=== PATIENT | female | born 1950 | race Caucasian/White ===

== ENCOUNTER 2017-09-27 09:49 | Day surgery (SDC) | payer MEDICARE ==
[~2017-09-27 09:49] MED LIST: PHENYLEPHRINE HCL 10 % OPHTH. SOL 5ML OS
[2017-09-27] MEDS: CYCLOPENTOLATE 2% OPHTH SOLN 2ML BTL OS (12:22)
[2017-09-27] MEDS: TROPICAMIDE 1% OPHTH SOLN 2ML OS (12:23)
[2017-09-27] MEDS: LIDOCAINE 3.5 % 1ML OPHTH TOPICAL GEL OU (12:23)
[2017-09-27] MEDS: OFLOXACIN 0.3 % (OCUFLOX) OPTH SOL 5ML OS (12:23)
[2017-09-27] MEDS: PHENYLEPHRINE 2.5% OPHTH SOL 2ML OS (12:23)
[2017-09-27 12:36] LABS: BEDSIDE GLUCOSE 169 MG/DL (80-115)
[2017-09-27] MEDS ORDERED: MIDAZOLAM INJ 2 MG/2 ML VIAL (J2250) As Ordered (12:58)
[2017-09-27] MEDS ORDERED: fentaNYL 100 MCG/2 ML INJECTION (J3010) As Ordered (12:58)
[2017-09-27] MEDS ORDERED: CARVedilol 6.25 MG TAB As Ordered (13:06)
[2017-09-27] MEDS: CARVedilol 6.25 MG TAB PO (13:15)
[2017-09-27] MEDS: POVIDONE-IODINE 5% OPHTH PREP SOL 30ML As Ordered (13:26)
[2017-09-27] MEDS: HEALON DUET (HEALON 10MG/ML 0.55ML & HEALON ENDOCOAT 30MG/ML 0.85ML) As Ordered (13:29)
[2017-09-27] MEDS: MOXIFLOXACIN IN BSS 0.25MG/0.25ML INTRACAMERAL INJ (OR EYE ONLY)(J2280) As Ordered (13:29)
[2017-09-27] MEDS: BSS with VANC/TOB/EPI for EYE CASES IR (13:29)
[2017-09-27] MEDS: TRIAMCINOLONE PRES FR 40 MG/ML 1ML(TRIESENCE)(OR EYE ONLY)(J3300 PER 1MG) As Ordered (13:29)
[2017-09-27] MEDS: LIDOCAINE 1% SDV 5 ML VIAL As Ordered (13:29)
[2017-09-27] MEDS: LIDOCAINE 2% W/EPIN INJ 20ML **PRES FREE XX (13:31)
== END 2017-09-27 14:10 | disposition home or self-care (01) ==
LOC: M SDC 09:49
DX: H26.9 Unspecified cataract (principal); E11.9 Type 2 diabetes mellitus without complications; G47.30 Sleep apnea, unspecified; I10 Essential (primary) hypertension; E78.5 Hyperlipidemia, unspecified; F32.9 Major depressive disorder, single episode, unspecified; D64.9 Anemia, unspecified; E55.9 Vitamin D deficiency, unspecified; Z88.2 Allergy status to sulfonamides; Z79.899 Other long term (current) drug therapy; Z79.84 Long term (current) use of oral hypoglycemic drugs
CPT/HCPCS: 66984

== ENCOUNTER 2017-12-05 07:24 | Day surgery (SDC) | payer MEDICARE ==
[~2017-12-05 07:24] MED LIST changes: +PHENYLEPHRINE HCL 10 % OPHTH. SOL 5ML OD; -PHENYLEPHRINE HCL 10 % OPHTH. SOL 5ML OS
[2017-12-05 08:15] LABS: BEDSIDE GLUCOSE 232 MG/DL (80-115)
[2017-12-05] MEDS: OFLOXACIN 0.3 % (OCUFLOX) OPTH SOL 5ML OD (08:29)
[2017-12-05] MEDS: PHENYLEPHRINE 2.5% OPHTH SOL 2ML OD (08:29)
[2017-12-05] MEDS: TROPICAMIDE 1% OPHTH SOLN 2ML OD (08:29)
[2017-12-05] MEDS: CYCLOPENTOLATE 2% OPHTH SOLN 2ML BTL OD (08:29)
[2017-12-05] MEDS: LIDOCAINE 3.5 % 1ML OPHTH TOPICAL GEL OU (08:29)
[2017-12-05] MEDS: POVIDONE-IODINE 5% OPHTH PREP SOL 30ML As Ordered (09:22)
[2017-12-05] MEDS ORDERED: fentaNYL 100 MCG/2 ML INJECTION (J3010) As Ordered (09:26)
[2017-12-05] MEDS ORDERED: MIDAZOLAM INJ 2 MG/2 ML VIAL (J2250) As Ordered (09:26)
[2017-12-05] MEDS: MOXIFLOXACIN IN BSS 0.25MG/0.25ML INTRACAMERAL INJ (OR EYE ONLY)(J2280) As Ordered (09:28)
[2017-12-05] MEDS: TRIAMCINOLONE PRES FR 40 MG/ML 1ML(TRIESENCE)(OR EYE ONLY)(J3300 PER 1MG) As Ordered (09:28)
[2017-12-05] MEDS: LIDOCAINE 1% SDV 5 ML VIAL As Ordered (09:28)
[2017-12-05] MEDS: HEALON DUET (HEALON 10MG/ML 0.55ML & HEALON ENDOCOAT 30MG/ML 0.85ML) As Ordered (09:28)
[2017-12-05] MEDS: BSS with VANC/TOB/EPI for EYE CASES IR (09:29)
== END 2017-12-05 10:17 | disposition home or self-care (01) ==
LOC: M SDC 07:24
DX: H25.9 Unspecified age-related cataract (principal); E11.9 Type 2 diabetes mellitus without complications; I10 Essential (primary) hypertension; E78.5 Hyperlipidemia, unspecified; G47.30 Sleep apnea, unspecified; Z88.2 Allergy status to sulfonamides; Z79.899 Other long term (current) drug therapy
CPT/HCPCS: 66984

== ENCOUNTER 2018-08-09 14:47 | Day surgery (SDC) | payer MEDICARE ==
[~2018-08-09] VITALS: Ht 154.9 cm; Wt 82.0 kg
[~2018-08-09 14:47] MED LIST changes: +ACETAMINOPHEN 325 MG TAB PO PRN; +AMLO5TAB6 PO; +ATOR1TAB21 PO; +CARV6.25 PO; +CHLO125TA PO; +CITA20TA4 PO; +GLIM4TAB PO; +IRBE300T10 PO; +LIDOCAINE 3.5 % 1ML OPHTH TOPICAL GEL OU ONE; +LOVA20TA2 PO; +METF500T13 PO; +MULT1TAB10 PO; -PHENYLEPHRINE HCL 10 % OPHTH. SOL 5ML OD; +PROPARACAINE 0.5% OPHTH SOL 15ML OD PRN
[2018-08-09] MEDS ORDERED: TRIMETHOBENZAMIDE 300 MG CAP PO PRN (15:00)
[2018-08-09] MEDS ORDERED: KETOROLAC 0.5% OPHTH SOLN OD ONE (15:00)
[2018-08-09] MEDS ORDERED: fentaNYL 100 MCG/2 ML INJECTION (J3010) As Ordered ONE (16:12)
[2018-08-09] MEDS ORDERED: MIDAZOLAM INJ 2 MG/2 ML VIAL (J2250) As Ordered ONE ×2 (16:12→17:32)
[2018-08-09] MEDS ORDERED: ONDANSETRON 4MG/2ML VIAL (J2405) As Ordered ONE (16:13)
[2018-08-09] MEDS ORDERED: mitoMYcin 0.2 MG/VIAL KIT FOR OPHTHALMIC USE (J7315 PER 0.2MG) As Ordered ONE (16:26)
[2018-08-09] MEDS ORDERED: TOBRAMYCIN INJ 80 MG/2 ML VIAL (J3260) As Ordered ONE (16:26)
[2018-08-09] MEDS ORDERED: BETAMETHASONE SOLUSPAN 6MG/ML INJ 5ML (J0702) As Ordered ONE (16:26)
[2018-08-09] MEDS ORDERED: POVIDONE-IODINE 5% OPHTH PREP SOL 30ML As Ordered ONE (16:27)
[2018-08-09] MEDS ORDERED: LIDOCAINE 2% W/EPIN INJ 20ML **PRES FREE As Ordered ONE (16:27)
[2018-08-09] MEDS ORDERED: TOBRADEX OPHTH OINT 3.5 GM As Ordered ONE (16:27)
[2018-08-09] MEDS ORDERED: HEALON DUET PRO(HEALON 10MG/ML 0.55ML & HEALON ENDOCOAT 30MG/ML 0.85ML) As Ordered ONE (16:27)
[2018-08-09] MEDS ORDERED: BALANCED SALT IRRIGATION SOL 500ML GLASS BOTTLE (FOR OR EYE COMPOUND) As Ordered ONE (17:06)
[2018-08-09] MEDS ORDERED: CEFUROXIME 1MG/0.1ML INTRACAMERAL INJ As Ordered ONE (17:45)
[2018-08-09 18:25] VITALS: BP 163/75
--- NOTE | 2018-08-14 18:59 | RO ---
DATE OF PROCEDURE: 08/09/2018 PREPROCEDURE DIAGNOSIS: Glaucoma right eye. POSTPROCEDURE DIAGNOSIS: Glaucoma right eye. PROCEDURE: Placement of the EX-PRESS shunt right eye and endocyclophotocoagulation right eye. SURGEON: Dr. Daija Burrell PHARMACY HELPER: None. ANESTHESIA: COMPLICATIONS: None. PROCEDURE IN DETAIL: The patient was brought to the operating room and laid in supine position. The eye was prepped and draped in a sterile fashion for ophthalmic surgery and a lid speculum was placed. 2% lidocaine with 1:100 epinephrine was then injected into the subconjunctival space superiorly. 7-0 Vicryl suture was then used in the superior limbal area to rotate the eye inferiorly. Subconjunctival dissection was then carried out and conjunctival peritomy was done between 10-o'clock and 2-o'clock hours. Hemostasis was obtained as necessary. Mitomycin 0.3 mg/mL was then placed under the scleral bed for 2 minutes followed by copious irrigation with balanced salt solution. A limbal based rectangular scleral flap measuring 3 mm x 4 mm was then created with the help of the straight and curved blades, a [place] blade. Dissection was carried out almost to the blue line. Anterior chamber was then entered with the help of a 27-gauge needle which was subsequently retracted and the EX-PRESS shunt was placed through the same tract. This was draped over by the scleral flap. Conjunctiva was then closed over it with the help of #8-0 Vicryl sutures and 10-0 nylon sutures. No leaks were noted and a good bleb was noted. After this, a temporal clear corneal incision was made with a 2.5 mm keratome. Healon was placed below the iris to visualize the ciliary processes which were visualized with the help of the EndoProbe on the video screen. Endocyclophotocoagulation was done 280 degrees at 0.25 mV with good results noted by the shrinking of the ciliary processes. EndoProbe was then removed. Viscoelastic was aspirated. Wound was hydrated. Intracameral moxifloxacin was given and patient was returned to the recovery room in stable condition.
== END 2018-08-09 18:41 | disposition home or self-care (01) ==
LOC: M SDC 14:47
PROVIDERS: ATTEND Ophthalmology
DX: H40.1131 Primary open-angle glaucoma, bilateral, mild stage (principal); I10 Essential (primary) hypertension; E78.5 Hyperlipidemia, unspecified; E66.9 Obesity, unspecified; G47.30 Sleep apnea, unspecified; Z79.84 Long term (current) use of oral hypoglycemic drugs; Z79.899 Other long term (current) drug therapy
CPT/HCPCS: 66183; 66711; C1783; J2250; J2405; J3010; J7315

== ENCOUNTER → 2019-08-06 | Outpatient (CLI) | payer MEDICARE ==
[~2019-08-06] MED LIST changes: -ACETAMINOPHEN 325 MG TAB PO PRN; -CITA20TA4 PO; +CITA20TA6 PO; -GLIM4TAB PO; +GLIM4TAB5 PO; -IRBE300T10 PO; +IRBE300T7 PO; -LIDOCAINE 3.5 % 1ML OPHTH TOPICAL GEL OU ONE; -PROPARACAINE 0.5% OPHTH SOL 15ML OD PRN
--- NOTE | 2019-08-06 13:51 | REPMRS ---
Patient History The patient states she had a clinical breast exam in 07/2019. Patient is postmenopausal. Family history of colorectal cancer in maternal uncle, endometrial cancer under age 50 and ovarian cancer under age 50 in mother. No Hormone Replacement Therapy Digital Woman Screen Mammo: August 06, 2019 - Exam #: [id number] Bilateral CC and MLO view(s) were taken. Technologist: Rere Chambers, Technologist Prior study comparison: March 21, 2014, bilateral digital mammo screening bilat, performed at [facility]. March 18, 2013, right breast digital mammo diagnostic unilateral, performed at [facility]. FINDINGS: There are scattered fibroglandular densities. There is a grouping of microcalcifications projecting in the upper outer quadrant of the right breast which merits further evaluation. There has been no other change in the appearance of the mammogram from the prior studies. There is a mild amount of scattered fibroglandular density which is fairly symmetric. There is no other interval development of dominant mass, architectural distortion, or grouped microcalcification suggestive of malignancy. 3-D tomosynthesis shows no additional findings. Assessment: BI-RADS/ACR category 0 mammogram, Incomplete: Need additional imaging evaluation and/or prior mammograms for comparison. Recommendation Special view mammogram of the right breast. This patient's Lifetime Breast Cancer Risk is estimated at 4.3 %. This mammogram was interpreted with the aid of an FDA-approved computer-aided dectection system. Electronically Signed By: Paulo Ruelas MD 08/06/19 6093
== END ==
LOC: M WHC 10:59
PROVIDERS: ATTEND Nurse Practitioner Family
DX: Z12.31 Encounter for screening mammogram for malignant neoplasm of breast (principal); Z78.0 Asymptomatic menopausal state; Z80.49 Family history of malignant neoplasm of other genital organs; Z80.41 Family history of malignant neoplasm of ovary; R92.0 Mammographic microcalcification found on diagnostic imaging of breast

== ENCOUNTER → 2019-08-13 | Outpatient (CLI) | payer MEDICARE ==
--- NOTE | 2019-08-13 11:19 | REP ---
Digital diagnostic unilateral right breast mammography with CAD: Three views. History: The patient was recalled from screening mammography August 06, 2019 BIRADS category 0 because of some microcalcifications in the upper outer quadrant. Diagnostic imaging was recommended. Comparison is also made with prior mammography March 21, 2014 and March 18, 2013. Mammographic findings: Magnified focal spot compression CC, true mediolateral, and MLO views are obtained. These confirm the presence of two adjacent groupings of polymorphic microcalcifications in the upper outer quadrant of the right breast. These are more numerous than on prior mammography and merit some degree of suspicion. There is also vascular calcification in the upper outer quadrant. A stable upper outer quadrant lymph node is seen. No other significant finding. Impression: Microcalcific grouping confirmed in the upper outer quadrant of the right breast for which stereotactic needle biopsy is recommended. This mammogram was interpreted with the aid of an FDA-approved computer-aided detection system. The patient states he/she had a clinical breast exam in July 2019. The patient letter being requested is m4. This patient's estimated Tyrer-Cuzick lifetime risk assessment for the breast cancer is 4.3 %.
== END ==
LOC: M WHC 10:09
PROVIDERS: ATTEND Nurse Practitioner Family
DX: Z12.31 Encounter for screening mammogram for malignant neoplasm of breast (principal); R92.1 Mammographic calcification found on diagnostic imaging of breast
CPT/HCPCS: 77065; G0279

== ENCOUNTER → 2019-09-05 | Outpatient (CLI) | payer MEDICARE ==
--- NOTE | 2019-09-05 12:05 | REP ---
ULTRASOUND RIGHT BREAST: HISTORY: Palpable lump at 10 o'clock 8 cm from the nipple. Real-time sonographic evaluation of the right breast performed in the region of 10 o'clock at the site of a reported palpable abnormality. At that location a nodule is seen demonstrating a reniform shape with an echogenic hilum, measuring 6 x 6 x 4 mm. There is internal blood flow with Doppler evaluation. This is consistent with an intramammary lymph node. This is seen on several prior mammograms. The finding is benign. IMPRESSION: At the site of the reported palpable abnormality at 10 o'clock right breast 8 cm from the nipple there is an intramammary lymph node which has a benign appearance as discussed in detail above. It is seen on prior mammograms and has remained stable. ACR 2 benign.
== END ==
LOC: M WHC 10:34
PROVIDERS: ATTEND Surgery
DX: R59.0 Localized enlarged lymph nodes (principal); N63.10 Unspecified lump in the right breast, unspecified quadrant

== ENCOUNTER → 2019-09-18 | Outpatient (CLI) | payer MEDICARE ==
[~2019-09-18] MED LIST changes: +FISH1000 PO; +JARD1TAB PO; +REFR1DRO8 OP; +XALA0.007 OP
[2019-09-18 14:20] VITALS: BP 140/72
--- NOTE | 2019-09-18 14:49 | REP ---
SPECIMEN RADIOGRAPHY RIGHT BREAST: Four views. HISTORY: Microcalcifications right breast. The patient status post stereotactic needle biopsy. Comparison mammography August 14, 2019. Two microcalcification targets for biopsy. FINDINGS: There are microcalcifications visible on multiple removed specimens from both targets. IMPRESSION: Specimen radiography demonstrates microcalcifications from each of the two targeted groupings of microcalcification.
--- NOTE | 2019-09-18 14:57 | REP ---
DIGITAL DIAGNOSTIC UNILATERAL RIGHT BREAST MAMMOGRAPHY WITH CAD: TWO VIEWS. HISTORY: The patient is status post stereotactic needle biopsy for two groupings of microcalcifications in the upper outer quadrant of the right breast. Comparison mammography August 13, 2019. FINDINGS: Craniocaudal and mediolateral views demonstrate two needle biopsy marker clips in good position relative to the microcalcific groupings which were targeted. These have been removed and are no longer visible. IMPRESSION: Marker clips in good position.
--- NOTE | 2019-09-18 17:18 | ROOPDOC ---
[facility] Report Of Operation Report of Operation DATE OF PROCEDURE: 09/18/19 PREPROCEDURE DIAGNOSES: 2 clusters of suspicious calcifications in the right breast POSTPROCEDURE DIAGNOSES: 2 clusters of suspicious calcifications in the right breast PROCEDURE: Right breast stereotactic biopsy of 2 separate clusters of calcifications with 2 clip placements. SURGEON: Susan Hewitt MUSIC COORDINATOR: ANESTHESIA: Local anesthetic ESTIMATED BLOOD LOSS: Approximately 5 mL. COMPLICATIONS: None REMARKS: Postbiopsy clips are seen on mammogram in in good position. 2 clusters of suspicious calcifications were removed during the biopsy. DESCRIPTION OF PROCEDURE: Lidocaine 1% LOT [id number] Expiration 10/2022 Sodium Bicarbonate 8.4% LOT [id number] Expiration 08/2020 ANTERIOR BIOPSY: Hydromark clip LOT [id number] Expiration 03/2021 T1 titanium shaped 1 (closed Spring) Bx device: Stereotactic Mammotome Revolve Dual Vacuum- assisted Biopsy System 10 G LOT [id number] Expiration 06/2022 REF [id number] POSTERIOR BIOPSY: Hydromark clip LOT [id number] Expiration 08/2021 T3 titanium shaped 3 Bx device: Stereotactic Mammotome Revolve Dual Vacuum- assisted Biopsy System 10 G LOT [id number] Expiration 08/2021 REF [id number] Informed consent was obtained in the preop area. The most common risk and possible complications including bleeding, hematoma, bruising, infection, injury to surrounding structures were explained to the patient and she expressed understanding. Patient was taken to the procedure room and placed prone on the [facility] Breast Biopsy table with the right breast hanging through the table aperture. Right breast was placed into Cranio-Caudal compression and Dental Associate ashley images were taken. Two Suspicious clusters of calcifications were identified on the ashley images and targets for anterior cluster and posterior cluster were set. At this time, since we were able to confirm visibility of the suspicious clusters of calcifications and patient tolerated prone positioning allowing to proceed with the biopsy, appropriate time out was done stating patients name, date of , and the procedure to be performed. Procedure was started with targeting the anterior cluster of calcifications first. The right breast in CC compression was prepped in the usual fashion. Plain Lidocaine 1% and 8.4% sodium bicarbonate 10:1 mix was used to numb the skin, the biopsy site and tissues along the anticipated biopsy tract. Small skin incision was made with blade number 11. Mammotome 10 G stereotactic breast biopsy device was inserted through the incision and advanced to the previously set coordinates marking the target lesion. Pre-fire imaging was taken to assure appropriate positioning. At this time, Mammotome 10 G breast biopsy device was fired and vacuum assisted biopsies were collected. The biopsy samples were investigated with F[employer] Imaging system and calcifications were observed. Biopsy samples were then placed in the formaldehyde, marked with patients name and right breast biopsy site, and sent to pathology for evaluation. Hydromark clip was placed into the Mammotome biopsy device channel and deployed. Post-deployment imaging was done to assure appropriate clip deployment. Clip was noted in the right breast. Next, our attention was turned toward the posterior cluster of calcifications. New target was set on ashley director of scout work views. Plain Lidocaine 1% and 8.4% sodium bicarbonate 10:1 mix was used to numb the skin, the biopsy site and tissues along the anticipated biopsy tract. A second small skin incision was made with blade number 11. Mammotome 10 G stereotactic breast biopsy device was inserted through the incision and advanced to the previously set coordinates marking the target lesion. Pre-fire imaging was taken to assure appropriate positioning. At this time, Mammotome 10 G breast biopsy device was fired and vacuum assisted biopsies were collected. The biopsy samples were investigated with Faxitron Imaging system and calcifications were observed. Biopsy samples were then placed in the formaldehyde, marked with patients name and right breast biopsy site, and sent to pathology for evaluation. Hydromark clip was placed into the Mammotome biopsy device channel and deployed. Post-deployment imaging was done to assure appropriate clip deployment. Clip was noted in the right breast. At this point, paddle CC compression of the right breast was released and manual pressure was held to decrease harmonic effect and to assure hemostasis. No bleeding was noted upon removal of the pressure. Patient was slowly repositioned and placed into sitting position, and then assisted off the table. Post-biopsy mammogram of the right breast was obtained and showed both clips in expected position and previous cluster of calcifications were no monger visible at the mammogram. Postprocedural dressing was placed. Patient tolerated procedure well and was taken to the recovery unit in stable condition. Discharge instructions were discussed with the patient and she expressed understanding. SUSAN HEWITT DO Sep 18, 2019 17:18
== END ==
LOC: M WHCPRO 12:47
PROVIDERS: ATTEND Surgery
DX: N60.11 Diffuse cystic mastopathy of right breast (principal); Z88.2 Allergy status to sulfonamides; Z88.8 Allergy status to other drugs, medicaments and biological substances

== ENCOUNTER → 2020-10-06 | Outpatient (CLI) | payer MEDICARE ==
[~2020-10-06] MED LIST changes: +AMLO1TAB24 PO; -AMLO5TAB6 PO
--- NOTE | 2020-10-06 15:29 | REPMRS ---
Patient History The patient states she had a clinical breast exam in September 2020. Family history of colorectal cancer in maternal uncle, endometrial cancer under age 50 and ovarian cancer under age 50 in mother. Benign stereotatic loc for ea lesion. of the right breast, September 18, 2019. Benign radio exam breast specimen. of the right breast, September 18, 2019. No Hormone Replacement Therapy Patient states no breast complaints today. Patient has signed MRS History Sheet. Digital Woman Screen Mammo: October 06, 2020 - Exam #: [id number] Bilateral CC and MLO view(s) were taken. Technologist: RT Joyce Prior study comparison: August 13, 2019, right breast diagnostic unilateral mammo performed at [facility]. August 06, 2019, bilateral digital woman screen mammo performed at [facility]. Screening. Digital screening (2D) mammography was performed bilaterally in the CC and MLO projections. Additionally, breast tomosynthesis (3D mammography) was performed bilaterally in the CC and MLO projections. Todays exam was compared to the prior exams(s). By history, the patient has no complaints of a palpable breast abnormality or other significant breast complaints. The breasts are unchanged in size and shape. There are no sho-soft tissue densities or spiculated masses. There is no internal architectural distortion. Once again, stable benign appearing calcifications are seen.There are no suspicious sho-calcific clusters. Skin thickening or nipple retraction is not present. IMPRESSION: The [place] volumetric breast density category is B, there are scattered areas of fibroglandular density. BI-RADS Category 2- Benign Findings(s). There is no evidence of malignant alteration of the breasts. Followup examination recommended in one year. The lifetime Tyrer-Cuzick score is 4.0 % This mammogram was read with the assistance of [employer],an FDA approved computer aided detection system for mammography. Negative x-ray reports should not delay surgical consultation if a dominant or clinically suspicious mass is present. Not all breast cancers can be identified by mammography. Therefore, we recommend that you continue to perform regular breast self-examination and physical examination and then promptly contact your physician of any concerns or changes. Adenosis and dense breasts may obscure an underlying neoplasm. Assessment: BI-RADS/ACR category 2 mammogram. Benign Findings. Recommendation Routine screening mammogram of both breasts in 1 year. Electronically Signed By: Bo Morales DO 10/06/20 0555
== END ==
LOC: M WHC 10:44
PROVIDERS: ATTEND Nurse Practitioner Women's Health
DX: Z12.31 Encounter for screening mammogram for malignant neoplasm of breast (principal); Z80.49 Family history of malignant neoplasm of other genital organs; Z80.41 Family history of malignant neoplasm of ovary; Z86.018 Personal history of other benign neoplasm; R92.1 Mammographic calcification found on diagnostic imaging of breast

== ENCOUNTER → 2021-09-23 | Outpatient (CLI) | payer MEDICARE ==
[~2021-09-23] MED LIST changes: +PIOG1TAB36 PO; +TRUL10IN SQ
== END ==
LOC: M LABSMTC 09:47
PROVIDERS: ATTEND Anesthesiology
DX: Z01.812 Encounter for preprocedural laboratory examination (principal); Z20.822 Contact with and (suspected) exposure to COVID-19

== ENCOUNTER 2021-09-28 06:44 | Day surgery (SDC) | payer MEDICARE ==
[~2021-09-28] VITALS: Ht 154.9 cm; Wt 85.3 kg
[~2021-09-28 06:44] MED LIST changes: +NS 1,000 ML IV ONE
[2021-09-28] MEDS ORDERED: LIDOCAINE 2% 100MG/5ML SDV (FOR ANES.) As Ordered ONE (08:23)
[2021-09-28] MEDS ORDERED: propofoL 200 MG/20 ML VIAL As Ordered ONE (08:23)
[2021-09-28 09:00] VITALS: BP 179/95
== END 2021-09-28 09:05 | disposition home or self-care (01) ==
LOC: M OPP 06:44
PROVIDERS: ATTEND Internal Medicine Gastroenterology
DX: Z86.010 Personal history of colon polyps (principal); Z80.0 Family history of malignant neoplasm of digestive organs; D12.6 Benign neoplasm of colon, unspecified; K64.8 Other hemorrhoids; I10 Essential (primary) hypertension; Z79.01 Long term (current) use of anticoagulants; Z79.02 Long term (current) use of antithrombotics/antiplatelets; Z79.84 Long term (current) use of oral hypoglycemic drugs; Z79.899 Other long term (current) drug therapy; Z88.2 Allergy status to sulfonamides; Z88.8 Allergy status to other drugs, medicaments and biological substances; Z53.8 Procedure and treatment not carried out for other reasons

== ENCOUNTER → 2021-10-27 | Outpatient (CLI) | payer MEDICARE ==
[~2021-10-27] MED LIST changes: -NS 1,000 ML IV ONE
== END ==
LOC: M WHC 14:04
PROVIDERS: ATTEND Advanced Practice Midwife
DX: Z12.31 Encounter for screening mammogram for malignant neoplasm of breast (principal); Z80.0 Family history of malignant neoplasm of digestive organs; Z80.41 Family history of malignant neoplasm of ovary; Z80.49 Family history of malignant neoplasm of other genital organs; Z86.018 Personal history of other benign neoplasm

== ENCOUNTER → 2022-01-09 | Outpatient (CLI) | payer MEDICARE ==
[~2022-01-09] MED LIST changes: +CHLO25TA PO; +MIRA3350 PO; +TRUL10IN PO; -TRUL10IN SQ; +VITA200016 PO
== END ==
LOC: M LABSMTC 10:53
PROVIDERS: ATTEND Anesthesiology
DX: Z01.812 Encounter for preprocedural laboratory examination (principal); Z20.822 Contact with and (suspected) exposure to COVID-19

== ENCOUNTER 2022-01-14 08:37 | Day surgery (SDC) | payer MEDICARE ==
[~2022-01-14] VITALS: Ht 157.5 cm; Wt 83.9 kg
[~2022-01-14 08:37] MED LIST changes: +LIDOCAINE 2% 100MG/5ML SDV (FOR ANES.) As Ordered ONE; +NS 1,000 ML IV ONE; +propofoL 200 MG/20 ML VIAL As Ordered ONE
[2022-01-14] MEDS ORDERED: D5W/0.9% SODIUM CHLORIDE 1,000 ML IV SCH (09:50)
[2022-01-14] MEDS ORDERED: propofoL 200 MG/20 ML VIAL As Ordered ONE (10:21)
[2022-01-14] MEDS ORDERED: LIDOCAINE 2% 100MG/5ML SDV (FOR ANES.) As Ordered ONE (10:21)
[2022-01-14] MEDS ORDERED: METOPROLOL 5 MG/5 ML VIAL As Ordered ONE (10:32)
[2022-01-14 11:40] VITALS: BP 127/62
== END 2022-01-14 11:59 | disposition home or self-care (01) ==
LOC: M OPP 08:37
PROVIDERS: ATTEND Internal Medicine Gastroenterology
DX: Z86.010 Personal history of colon polyps (principal); Z80.0 Family history of malignant neoplasm of digestive organs; K63.5 Polyp of colon; K57.30 Diverticulosis of large intestine without perforation or abscess without bleeding; K64.8 Other hemorrhoids; I10 Essential (primary) hypertension; E78.5 Hyperlipidemia, unspecified; E11.9 Type 2 diabetes mellitus without complications; F41.9 Anxiety disorder, unspecified; G47.30 Sleep apnea, unspecified; M19.90 Unspecified osteoarthritis, unspecified site; Z88.2 Allergy status to sulfonamides; Z88.8 Allergy status to other drugs, medicaments and biological substances; Z79.84 Long term (current) use of oral hypoglycemic drugs; Z79.899 Other long term (current) drug therapy; Z82.49 Family history of ischemic heart disease and other diseases of the circulatory system; Z80.8 Family history of malignant neoplasm of other organs or systems; Z82.3 Family history of stroke

== ENCOUNTER → 2022-05-16 | Outpatient (CLI) | payer MEDICARE ==
[~2022-05-16] MED LIST changes: -LIDOCAINE 2% 100MG/5ML SDV (FOR ANES.) As Ordered ONE; -NS 1,000 ML IV ONE; -propofoL 200 MG/20 ML VIAL As Ordered ONE
[2022-05-16 13:50] LABS: CHOLESTEROL RISK RATIO 3.32 (<5); HDL CHOLESTEROL 43.6 MG/DL (>40); LDL CHOLESTEROL 85.8 MG/DL (<100)
[2022-05-16 14:08] LABS: HEMOGLOBIN A1c 6.8 % (4.0-6.0)
== END ==
LOC: M WUC 10:02
PROVIDERS: ATTEND Physician Assistant
DX: E11.9 Type 2 diabetes mellitus without complications (principal); E78.5 Hyperlipidemia, unspecified

== ENCOUNTER → 2022-08-31 | Outpatient (CLI) | payer MEDICARE ==
[2022-08-31 17:19] LABS: HEMOGLOBIN A1c 7.2 % (4.0-6.0)
[2022-08-31 17:22] LABS: APPEARANCE, URINE HAZY (CLEAR); BACTERIA, URINE AUTO 1+ (NEGATIVE); BILIRUBIN, URINE AUTO NEGATIVE (NEGATIVE); BLOOD, URINE BLOOD NEGATIVE (NEGATIVE); COLOR, URINE YELLOW (YELLOW); GLUCOSE, URINE (UA) AUTO NEGATIVE (NEGATIVE); KETONE, URINE AUTO NEGATIVE (NEGATIVE); LEUKOCYTE ESTERASE, URINE AUTO 3+ (NEGATIVE); MUCUS, URINE SMALL (NEGATIVE); NITRITE, URINE AUTO NEGATIVE (NEGATIVE); PROTEIN, URINE AUTO NEGATIVE (NEGATIVE); RBC, URINE AUTO 3 /HPF (0-3); SPECIFIC GRAVITY URINE AUTO 1.016 (1.002-1.035); SQUAMOUS EPITHELIAL CELL UR AU 8 /HPF (0-6); UROBILINOGEN, URINE AUTO 0.2 mg/dL (0.0-2.0); WBC, URINE AUTO 20 /HPF (0-3)
[2022-08-31 17:31] LABS: CREATININE, URINE 85.8 MG/DL; MAU/CREAT RATIO 6.9 MCG/MG (0.0-30.0)
[2022-08-31 17:38] LABS: ALBUMIN 3.7 G/DL (3.2-5.2); ALKALINE PHOSPHATASE 75 U/L (46-116); ALT/SGPT 17 U/L (7.0-40); AST/SGOT 19 U/L (<34); BILIRUBIN,TOTAL 0.5 MG/DL (0.3-1.2); BLOOD UREA NITROGEN 14 MG/DL (9-23); CALCIUM LEVEL 9.5 MG/DL (8.3-10.6); CARBON DIOXIDE LEVEL 31 MMOL/L (20-31); CHLORIDE LEVEL 95 MMOL/L (98-107); CREATININE FOR GFR 0.67 MG/DL (0.55-1.30); GLOMERULAR FILTRATION RATE > 60.0 (>39); GLUCOSE, FASTING 110 MG/DL (74-106); POTASSIUM SERUM 3.9 MMOL/L (3.5-5.1); SODIUM LEVEL 133 MMOL/L (136-145); TOTAL PROTEIN 6.7 G/DL (5.7-8.2)
== END ==
LOC: M WUC 10:13
PROVIDERS: ATTEND Physician Assistant
DX: E11.9 Type 2 diabetes mellitus without complications (principal); I10 Essential (primary) hypertension

== ENCOUNTER → 2022-11-17 | Outpatient (CLI) | payer MEDICARE ==
[2022-11-17 14:05] LABS: HEMOGLOBIN A1c 7.2 % (4.0-6.0)
== END ==
LOC: M WUC 10:32
PROVIDERS: ATTEND Physician Assistant
DX: E11.9 Type 2 diabetes mellitus without complications (principal)

== ENCOUNTER → 2023-02-17 | Outpatient (CLI) | payer MEDICARE ==
[2023-02-17 19:48] LABS: HEMATOCRIT 40.1 % (36.0-47.0); HEMOGLOBIN 13.2 g/dl (12.0-15.5); MEAN CORPUSCULAR HEMOGLOBIN 28.6 pg (27.0-33.0); MEAN CORPUSCULAR HGB CONC 32.9 g/dl (32.0-36.5); MEAN CORPUSCULAR VOLUME 86.8 fl (80.0-96.0); PLATELET COUNT, AUTOMATED 320 10^3/uL (150-450); RED BLOOD COUNT 4.62 10^6/uL (4.00-5.40); WHITE BLOOD COUNT 9.1 10^3/uL (4.0-10.0)
[2023-02-17 20:41] LABS: ALBUMIN 3.8 G/DL (3.2-5.2); ALKALINE PHOSPHATASE 63 U/L (46-116); ALT/SGPT 16 U/L (7.0-40); AST/SGOT 10 U/L (<34); BILIRUBIN,TOTAL 0.6 MG/DL (0.3-1.2); BLOOD UREA NITROGEN 15 MG/DL (9-23); CALCIUM LEVEL 9.2 MG/DL (8.3-10.6); CARBON DIOXIDE LEVEL 30 MMOL/L (20-31); CHLORIDE LEVEL 93 MMOL/L (98-107); CHOLESTEROL LEVEL 172 MG/DL (<200); CHOLESTEROL RISK RATIO 3.53 (<5); CREATININE FOR GFR 0.67 MG/DL (0.55-1.30); GLOMERULAR FILTRATION RATE > 60.0 (>39); GLUCOSE, FASTING 113 MG/DL (74-106); HDL CHOLESTEROL 48.7 MG/DL (>40); LDL CHOLESTEROL 101.1 MG/DL (<100); NON-HDL-C 123.3 MG/DL; POTASSIUM SERUM 3.7 MMOL/L (3.5-5.1); SODIUM LEVEL 129 MMOL/L (136-145); THYROID STIMULATING HORMONE 2.075 uIU/ML (0.55-4.78); TOTAL PROTEIN 7.1 G/DL (5.7-8.2); TRIGLYCERIDES LEVEL 111 MG/DL (<150)
[2023-02-17 20:48] LABS: HEMOGLOBIN A1c 7.1 % (4.0-6.0)
== END ==
LOC: M WUC 10:46
PROVIDERS: ATTEND Physician Assistant
DX: E11.9 Type 2 diabetes mellitus without complications (principal); E78.5 Hyperlipidemia, unspecified; I10 Essential (primary) hypertension

== ENCOUNTER → 2023-05-25 | Outpatient (CLI) | payer MEDICARE | LOC: M WHC 10:44 | PROVIDERS: ATTEND Advanced Practice Midwife | DX: Z12.31 Encounter for screening mammogram for malignant neoplasm of breast (principal) ==

== ENCOUNTER → 2023-05-25 | Outpatient (REF) | payer MEDICARE | LOC: M SFHCWAGY 15:32 | PROVIDERS: ATTEND Advanced Practice Midwife | DX: N89.8 Other specified noninflammatory disorders of vagina (principal) ==

== ENCOUNTER → 2024-02-27 | Outpatient (CLI) | payer BC, MEDICARE ==
[~2024-02-27] MED LIST changes: +IRBE300T25 PO; -IRBE300T7 PO
[2024-02-27 14:47] LABS: HEMATOCRIT 36.3 % (36.0-47.0); MEAN CORPUSCULAR HEMOGLOBIN 28.4 pg (27.0-33.0); MEAN CORPUSCULAR HGB CONC 33.1 g/dl (32.0-36.5); PLATELET COUNT, AUTOMATED 307 10^3/uL (150-450); RED BLOOD COUNT 4.22 10^6/uL (4.00-5.40)
[2024-02-27 15:26] LABS: THYROID STIMULATING HORMONE 1.615 uIU/ML (0.55-4.78)
[2024-02-27 15:36] LABS: ALBUMIN 3.4 G/DL (3.2-5.2); ALKALINE PHOSPHATASE 72 U/L (46-116); ALT/SGPT 15 U/L (7.0-40); AST/SGOT 12 U/L (<34); BILIRUBIN,TOTAL 0.4 MG/DL (0.3-1.2); BLOOD UREA NITROGEN 14 MG/DL (9-23); CALCIUM LEVEL 9.5 MG/DL (8.3-10.6); CARBON DIOXIDE LEVEL 28 MMOL/L (20-31); CHLORIDE LEVEL 100 MMOL/L (98-107); CHOLESTEROL LEVEL 152 MG/DL (<200); CHOLESTEROL RISK RATIO 3.93 (<5); CREATININE FOR GFR 0.72 MG/DL (0.55-1.30); GLOMERULAR FILTRATION RATE > 60.0 (>39); GLUCOSE, FASTING 104 MG/DL (74-106); HDL CHOLESTEROL 38.6 MG/DL (>40); NON-HDL-C 113.4 MG/DL; POTASSIUM SERUM 4.3 MMOL/L (3.5-5.1); SODIUM LEVEL 131 MMOL/L (136-145); TOTAL PROTEIN 6.6 G/DL (5.7-8.2); TRIGLYCERIDES LEVEL 77 MG/DL (<150)
[2024-02-27 16:46] LABS: HEMOGLOBIN A1c 6.5 % (4.0-6.0)
== END ==
LOC: M WUC 10:28
PROVIDERS: ATTEND Physician Assistant
DX: E11.9 Type 2 diabetes mellitus without complications (principal); E78.5 Hyperlipidemia, unspecified; I10 Essential (primary) hypertension

== ENCOUNTER → 2024-06-28 | Outpatient (REF) | payer MEDICARE ==
[2024-06-28 12:14] LABS: HEMOGLOBIN A1c 7.1 % (4.0-6.0)
== END ==
LOC: M LABWUC 09:38
PROVIDERS: ATTEND Physician Assistant
DX: E11.9 Type 2 diabetes mellitus without complications (principal)

== ENCOUNTER → 2024-08-16 | Outpatient (CLI) | payer MEDICARE | LOC: M WHC 14:37 | PROVIDERS: ATTEND Advanced Practice Midwife | DX: Z12.31 Encounter for screening mammogram for malignant neoplasm of breast (principal); R92.323 Mammographic fibroglandular density, bilateral breasts ==

== ENCOUNTER 2024-08-27 13:42 | Inpatient (IN) | payer OTHER, MEDICARE ==
[~2024-08-27] VITALS: Ht 157.5 cm; Wt 76.9 kg
[~2024-08-27 13:42] MED LIST changes: -XALA0.007 OP; +XALA0.007 OU
[2024-08-27 17:16] LABS: BASO % 0.2 % (0.0-1.0); HEMOGLOBIN 11.6 g/dl (12.0-15.5); LYMPH # 0.8 10^3/uL (1.5-5.0); LYMPH % 13.4 % (24.0-44.0); MEAN CORPUSCULAR HEMOGLOBIN 29.1 pg (27.0-33.0); MEAN CORPUSCULAR HGB CONC 35.2 g/dl (32.0-36.5); MEAN CORPUSCULAR VOLUME 82.9 fl (80.0-96.0); MONO # 0.6 10^3/uL (0.0-0.8); MONO % 9.5 % (2.0-8.0); NEUTROPHILS # 4.4 10^3/uL (1.5-8.5); NEUTROPHILS % 76.6 % (36.0-66.0); PLATELET COUNT, AUTOMATED 230 10^3/uL (150-450); RED BLOOD COUNT 3.98 10^6/uL (4.00-5.40); WHITE BLOOD COUNT 5.8 10^3/uL (4.0-10.0)
[2024-08-27 17:48] LABS: BLOOD UREA NITROGEN 16 MG/DL (9-23); CALCIUM LEVEL 8.4 MG/DL (8.3-10.6); CARBON DIOXIDE LEVEL 27 MMOL/L (20-31); CHLORIDE LEVEL 87 MMOL/L (98-107); CK-MB VALUE MASS < 1.0 NG/ML (<3.6); CREATININE FOR GFR 0.68 MG/DL (0.55-1.30); GLOMERULAR FILTRATION RATE > 60.0 (>39); GLUCOSE, FASTING 94 MG/DL (74-106); POTASSIUM SERUM 3.2 MMOL/L (3.5-5.1); SODIUM LEVEL 123 MMOL/L (136-145)
[2024-08-27 17:50] LABS: CPK CREATINE PHOSPHOKINASE 90 U/L (34-145); MB/CK RELATIVE INDEX 1.11 (< OR =4)
[2024-08-27 18:50] LABS: CK-MB VALUE MASS < 1.0 NG/ML (<3.6)
[2024-08-27 18:55] LABS: CPK CREATINE PHOSPHOKINASE 82 U/L (34-145); MB/CK RELATIVE INDEX 1.21 (< OR =4)
[2024-08-27] MEDS ORDERED: SEMA0.257 INJ (19:36)
[2024-08-27] MEDS ORDERED: FISH100015 PO (19:36)
[2024-08-27] MEDS ORDERED: MM S100C PO (19:36)
[2024-08-27] MEDS ORDERED: HOME MED LIST COMPLETE! XX SCH (19:40)
[2024-08-27] MEDS ORDERED: MAALOX 30 ML SUSP *UDC PO PRN (20:20)
[2024-08-27] MEDS ORDERED: MOM 30ML SUSPENSION UDC PO PRN (20:20)
[2024-08-27] MEDS ORDERED: GLUCOSE 4 GM CHEW PO PRN (20:20)
[2024-08-27] MEDS ORDERED: DEXTROSE 50% 50ML SYRINGE IV PRN (20:20)
[2024-08-27] MEDS ORDERED: GLUCAGON INJ 1MG VIAL SC PRN (20:20)
[2024-08-27] MEDS ORDERED: ALBUTEROL 90 MCG/ACT 8GM HFA INHALER INH PRN (20:30)
[2024-08-27] MEDS ORDERED: DEXTROMETHORPHAN 60MG/10ML SUSP 90ML BTL(DELSYM) PO PRN (20:30)
[2024-08-27 20:40] LABS: VENOUS BASE EXCESS 0.7 (-2.0-2.0); VENOUS HCO3 24.9 MMOL/L (23.0-27.0); VENOUS O2 SATURATION 85.6 % (60.0-80.0); VENOUS PARTIAL PRESSURE CO2 38.8 mmHg (38.0-50.0); VENOUS PH 7.426 UNITS (7.330-7.430); VENOUS STANDARD HCO3 24.8 MMOL/L; VENOUS TOTAL CO2 26.1 MMOL/L (24.0-28.0)
[2024-08-27] MEDS: INSULIN LISPRO (NovoLOG) PER UNIT SC SCH (21:00)
[2024-08-27 21:09] LABS: ETHYL ALCOHOL (ETHANOL) 0.013 % (0.000-0.010)
[2024-08-27 21:10] LABS: ALBUMIN 3.2 G/DL (3.2-5.2); BILIRUBIN,DIRECT 0.1 MG/DL (<0.4); BILIRUBIN,TOTAL 0.3 MG/DL (0.3-1.2); MAGNESIUM LEVEL 1.5 MG/DL (1.8-2.4); TOTAL PROTEIN 6.3 G/DL (5.7-8.2)
[2024-08-27] MEDS: OSELTAMIVIR PHOSPHATE 75 MG CAP PO SCH (21:10)
[2024-08-27] MEDS: DOCUSATE SODIUM 100MG CAPSULE PO SCH (21:10)
[2024-08-27] MEDS: CETIRIZINE (ZyrTEC) 10 MG TAB PO SCH (21:10)
[2024-08-27] MEDS: FLUTICASONE PROP 0.05% NASAL SPRAY 16 GM (FLONASE) NARES SCH (21:16)
[2024-08-27] MEDS: NS 500 ML IV ONE (21:16)
[2024-08-27] MEDS: NS (Normal Saline) 0.9% 1,000 ML IV SCH (21:16)
[2024-08-27 22:27] LABS: AMPHETAMINES LEVEL URINE NEGATIVE (NEGATIVE); BARBITURATES URINE NEGATIVE (NEGATIVE); BENZODIAZEPINES URINE NEGATIVE (NEGATIVE); CANNABINOIDS URINE NEGATIVE (NEGATIVE); COCAINE METABOLITE URINE NEGATIVE (NEGATIVE); METHADONE URINE NEGATIVE (NEGATIVE); OPIATES URINE NEGATIVE (NEGATIVE); PHENCYCLIDINE URINE NEGATIVE (NEGATIVE)
[2024-08-27 22:42] VITALS: BP 140/63; TEMP 97.5; O2SAT 96
[2024-08-27 22:46] LABS: BLOOD UREA NITROGEN 15 MG/DL (9-23); CALCIUM LEVEL 7.9 MG/DL (8.3-10.6); CARBON DIOXIDE LEVEL 25 MMOL/L (20-31); CHLORIDE LEVEL 89 MMOL/L (98-107); CREATININE FOR GFR 0.66 MG/DL (0.55-1.30); GLOMERULAR FILTRATION RATE > 60.0 (>39); GLUCOSE, FASTING 94 MG/DL (74-106); POTASSIUM SERUM 2.9 MMOL/L (3.5-5.1); SODIUM LEVEL 124 MMOL/L (136-145)
[2024-08-27] MEDS: POTASSIUM CHLORIDE 10MEQ SR TABLET PO ONE (23:22)
[2024-08-27] MEDS: MAGNESIUM OXIDE 400MG TAB (MAG-OX) PO ONE (23:22)
[2024-08-27] MEDS: KCL 10MEQ/100ML SWI (KRUN) 10 MEQ in IV 1 EA IV SCH (23:23)
[2024-08-28] MEDS ORDERED: ISOVUE-370 76% 100ML VIAL As Ordered ONE (03:43)
[2024-08-28 04:11] VITALS: BP 133/63; TEMP 97.2; O2SAT 95
[2024-08-28 04:22] LABS: HEMATOCRIT 29.4 % (36.0-47.0); HEMOGLOBIN 10.4 g/dl (12.0-15.5); MEAN CORPUSCULAR HEMOGLOBIN 28.8 pg (27.0-33.0); MEAN CORPUSCULAR HGB CONC 35.4 g/dl (32.0-36.5); MEAN CORPUSCULAR VOLUME 81.4 fl (80.0-96.0); PLATELET COUNT, AUTOMATED 195 10^3/uL (150-450); RED BLOOD COUNT 3.61 10^6/uL (4.00-5.40); WHITE BLOOD COUNT 4.7 10^3/uL (4.0-10.0)
[2024-08-28 04:55] LABS: ALBUMIN 2.8 G/DL (3.2-5.2); ALKALINE PHOSPHATASE 48 U/L (35-104); ALT/SGPT 24 U/L (7.0-40); AST/SGOT 26 U/L (<34); BILIRUBIN,TOTAL 0.3 MG/DL (0.3-1.2); BLOOD UREA NITROGEN 12 MG/DL (9-23); CALCIUM LEVEL 7.7 MG/DL (8.3-10.6); CARBON DIOXIDE LEVEL 25 MMOL/L (20-31); CHLORIDE LEVEL 89 MMOL/L (98-107); CREATININE FOR GFR 0.59 MG/DL (0.55-1.30); GLOMERULAR FILTRATION RATE > 60.0 (>39); GLUCOSE, FASTING 109 MG/DL (74-106); MAGNESIUM LEVEL 1.5 MG/DL (1.8-2.4); POTASSIUM SERUM 3.3 MMOL/L (3.5-5.1); SODIUM LEVEL 121 MMOL/L (136-145); TOTAL PROTEIN 5.5 G/DL (5.7-8.2)
[2024-08-28] MEDS: MAG SULF 1GM/100ML (MAG RUN) 1 GM in IV 1 EA IV SCH (06:27)
[2024-08-28] MEDS: POTASSIUM CHLORIDE 10MEQ SR TABLET PO ONE (06:27)
[2024-08-28] MEDS: INSULIN LISPRO (NovoLOG) PER UNIT SC SCH (07:30)
[2024-08-28 07:40] VITALS: BP 153/75; TEMP 98.3; O2SAT 95
[2024-08-28 07:42] LABS: URIC ACID 3.4 MG/DL (3.1-7.8)
[2024-08-28 07:51] LABS: OSMOLALITY SERUM 262 MOSM/KG (280-301)
[2024-08-28] MEDS: MIRALAX *UNIT DOSE* 17GM PACKET PO SCH (09:00)
[2024-08-28] MEDS: ENOXAPARIN 40MG/0.4ML SYRINGE (J1650 PER 10MG) SC SCH (09:16)
[2024-08-28] MEDS: VITAMIN D 1,000 INTERNATIONAL UNITS TABLET PO SCH (09:16)
[2024-08-28] MEDS: POTASSIUM CHLORIDE 10MEQ SR TABLET PO SCH (09:17)
[2024-08-28] MEDS: MAGNESIUM OXIDE 400MG TAB (MAG-OX) PO SCH (09:17)
[2024-08-28 10:19] LABS: BLOOD UREA NITROGEN 9 MG/DL (9-23); CALCIUM LEVEL 8.3 MG/DL (8.3-10.6); CARBON DIOXIDE LEVEL 26 MMOL/L (20-31); CHLORIDE LEVEL 88 MMOL/L (98-107); CREATININE FOR GFR 0.61 MG/DL (0.55-1.30); GLOMERULAR FILTRATION RATE > 60.0 (>39); GLUCOSE, FASTING 126 MG/DL (74-106); POTASSIUM SERUM 3.7 MMOL/L (3.5-5.1); SODIUM LEVEL 124 MMOL/L (136-145)
[2024-08-28 11:51] LABS: FREE T4 1.09 NG/DL (0.89-1.76); THYROID STIMULATING HORMONE 1.309 uIU/ML (0.55-4.78)
[2024-08-28 12:09] VITALS: BP 135/60; TEMP 98.1; O2SAT 97
[2024-08-28 15:56] VITALS: BP 117/88; TEMP 101.1; O2SAT 95
[2024-08-28 16:31] LABS: KETONE, URINE AUTO RFX NEGATIVE (NEGATIVE); LEUKOCYTE ESTERASE UR AUTO RFX 3+ (NEGATIVE); NITRITE, URINE AUTO RFX NEGATIVE (NEGATIVE); RBC, URINE AUTO RFX 6 /HPF (0-3); SQUAM EPITHELIAL CELL UR AURFX 5 /HPF (0-6); WBC, URINE AUTO RFX 4 /HPF (0-3)
[2024-08-28 16:35] LABS: OSMOLALITY URINE 421 MOSM/KG (50-1400)
[2024-08-28] MEDS: ACETAMINOPHEN 325 MG TAB PO PRN (16:35)
[2024-08-28 16:47] LABS: SODIUM,RANDOM URINE 104 MMOL/L
[2024-08-28 16:57] LABS: BLOOD UREA NITROGEN 11 MG/DL (9-23); CALCIUM LEVEL 7.9 MG/DL (8.3-10.6); CARBON DIOXIDE LEVEL 26 MMOL/L (20-31); CHLORIDE LEVEL 91 MMOL/L (98-107); CREATININE FOR GFR 0.69 MG/DL (0.55-1.30); GLOMERULAR FILTRATION RATE > 60.0 (>39); GLUCOSE, FASTING 118 MG/DL (74-106); SODIUM LEVEL 125 MMOL/L (136-145)
[2024-08-28 20:00] VITALS: BP 118/69; TEMP 97.9; O2SAT 95
[2024-08-28] MEDS: CitaloPRAM (CeleXA) 20 MG TAB PO SCH (21:02)
[2024-08-28] MEDS: SODIUM CHLORIDE 1 GM TAB PO SCH (21:02)
[2024-08-28] MEDS: ATORVASTATIN 20 MG TAB PO SCH (21:02)
[2024-08-28] MEDS: LATANOPROST 0.005% OPHTH SOLN 2.5 ML OU SCH (21:46)
[2024-08-28 23:42] LABS: BLOOD UREA NITROGEN 8 MG/DL (9-23); CALCIUM LEVEL 7.8 MG/DL (8.3-10.6); CARBON DIOXIDE LEVEL 25 MMOL/L (20-31); CHLORIDE LEVEL 93 MMOL/L (98-107); CREATININE FOR GFR 0.64 MG/DL (0.55-1.30); GLOMERULAR FILTRATION RATE > 60.0 (>39); GLUCOSE, FASTING 98 MG/DL (74-106); POTASSIUM SERUM 3.9 MMOL/L (3.5-5.1); SODIUM LEVEL 129 MMOL/L (136-145)
[2024-08-29 04:30] VITALS: BP 168/86; TEMP 97.8; O2SAT 95
[2024-08-29 04:39] LABS: BLOOD UREA NITROGEN 7 MG/DL (9-23); CARBON DIOXIDE LEVEL 26 MMOL/L (20-31); CHLORIDE LEVEL 94 MMOL/L (98-107); CREATININE FOR GFR 0.59 MG/DL (0.55-1.30); GLOMERULAR FILTRATION RATE > 60.0 (>39); GLUCOSE, FASTING 104 MG/DL (74-106); POTASSIUM SERUM 4.2 MMOL/L (3.5-5.1); SODIUM LEVEL 129 MMOL/L (136-145)
[2024-08-29 07:46] VITALS: BP 135/81; TEMP 97.7; O2SAT 96
[2024-08-29 08:00] VITALS: BP 135/81; TEMP 97.7; O2SAT 96
[2024-08-29] MEDS ORDERED: MAGN400T2 PO (10:02)
[2024-08-29] MEDS ORDERED: SODI1TAB6 PO (10:02)
[2024-08-29] MEDS ORDERED: OSEL75CA2 PO (10:02)
[2024-08-29] MEDS ORDERED: POTA-136 PO (10:02)
== END 2024-08-29 13:17 | disposition home or self-care (01) | DRG 425 ==
LOC: M ED 13:42 → M ED INP 20:20 → M PCU 22:40
PROVIDERS: ADMIT Student in an Organized Health Care Education/Training Program; ATTEND Student in an Organized Health Care Education/Training Program
PROC: B246ZZZ Ultrasonography of Right and Left Heart (ICD-10-PCS; principal; 2024-08-28)
DX: E87.1 Hypo-osmolality and hyponatremia (principal); E83.42 Hypomagnesemia; E11.9 Type 2 diabetes mellitus without complications; E87.6 Hypokalemia; G47.33 Obstructive sleep apnea (adult) (pediatric); I10 Essential (primary) hypertension; M85.80 Other specified disorders of bone density and structure, unspecified site; F32.A Depression, unspecified; E78.5 Hyperlipidemia, unspecified; V48.0XXA Car driver injured in noncollision transport accident in nontraffic accident, initial encounter; J10.1 Influenza due to other identified influenza virus with other respiratory manifestations; H40.9 Unspecified glaucoma; E04.1 Nontoxic single thyroid nodule; M47.892 Other spondylosis, cervical region; Z90.49 Acquired absence of other specified parts of digestive tract; Z90.79 Acquired absence of other genital organ(s); Z79.84 Long term (current) use of oral hypoglycemic drugs; Z79.899 Other long term (current) drug therapy; Z88.2 Allergy status to sulfonamides; Z88.8 Allergy status to other drugs, medicaments and biological substances; Y93.84 Activity, sleeping

== ENCOUNTER → 2024-09-16 | Outpatient (CLI) | payer MEDICARE ==
[~2024-09-16] MED LIST changes: +FISH100015 PO; +MAGN400T2 PO; +MM S100C PO; +OSEL75CA2 PO; +POTA-136 PO; +SEMA0.257 INJ; +SODI1TAB6 PO
[2024-09-16 12:34] LABS: ALBUMIN 3.4 G/DL (3.2-5.2); ALKALINE PHOSPHATASE 60 U/L (35-104); ALT/SGPT 14 U/L (7.0-40); AST/SGOT 11 U/L (<34); BILIRUBIN,TOTAL 0.5 MG/DL (0.3-1.2); BLOOD UREA NITROGEN 15 MG/DL (9-23); CALCIUM LEVEL 9.3 MG/DL (8.3-10.6); CARBON DIOXIDE LEVEL 30 MMOL/L (20-31); CHLORIDE LEVEL 101 MMOL/L (98-107); CHOLESTEROL LEVEL 146 MG/DL (<200); CHOLESTEROL RISK RATIO 3.25 (<5); CREATININE FOR GFR 0.66 MG/DL (0.55-1.30); GLOMERULAR FILTRATION RATE > 60.0 (>39); GLUCOSE, FASTING 114 MG/DL (74-106); HDL CHOLESTEROL 44.8 MG/DL (>40); LDL CHOLESTEROL 81.4 MG/DL (<100); NON-HDL-C 101.2 MG/DL; POTASSIUM SERUM 4.4 MMOL/L (3.5-5.1); SODIUM LEVEL 137 MMOL/L (136-145); TOTAL PROTEIN 6.4 G/DL (5.7-8.2); TRIGLYCERIDES LEVEL 99 MG/DL (<150)
[2024-09-16 12:39] LABS: HEMATOCRIT 34.2 % (36.0-47.0); HEMOGLOBIN 11.3 g/dl (12.0-15.5); MEAN CORPUSCULAR VOLUME 87.7 fl (80.0-96.0); PLATELET COUNT, AUTOMATED 278 10^3/uL (150-450)
[2024-09-16 12:53] LABS: HEMOGLOBIN A1c 6.7 % (4.0-6.0)
[2024-09-17 07:05] LABS: WHITE BLOOD COUNT 7.5 10^3/uL (4.0-10.0)
== END ==
LOC: M WUC 09:56
PROVIDERS: ATTEND Physician Assistant
DX: E78.5 Hyperlipidemia, unspecified (principal); E11.9 Type 2 diabetes mellitus without complications; R55 Syncope and collapse

== ENCOUNTER → 2025-03-28 | Outpatient (CLI) | payer MEDICARE ==
[~2025-03-28] MED LIST changes: -FISH100015 PO; +FISH100019 PO
[2025-03-28 15:09] LABS: PLATELET COUNT, AUTOMATED 351 10^3/uL (150-450)
[2025-03-28 15:12] LABS: ALT/SGPT 17 U/L (7.0-40); AST/SGOT 17 U/L (<34); CALCIUM LEVEL 9.8 MG/DL (8.3-10.6); CARBON DIOXIDE LEVEL 29 MMOL/L (20-31); CHLORIDE LEVEL 99 MMOL/L (98-107); CHOLESTEROL LEVEL 159 MG/DL (<200); CHOLESTEROL RISK RATIO 2.99 (<5); CREATININE FOR GFR 0.68 MG/DL (0.55-1.30); GLOMERULAR FILTRATION RATE > 90.0 (>39); LDL CHOLESTEROL 87.7 MG/DL (<100); NON-HDL-C 105.9 MG/DL; POTASSIUM SERUM 4.7 MMOL/L (3.5-5.1); SODIUM LEVEL 138 MMOL/L (136-145); TRIGLYCERIDES LEVEL 91 MG/DL (<150)
[2025-03-28 15:20] LABS: ESTIMATED AVERAGE GLUCOSE 143.0 MG/DL (60-110)
== END ==
LOC: M WUC 12:11
PROVIDERS: ATTEND Physician Assistant
DX: E78.5 Hyperlipidemia, unspecified (principal); E11.9 Type 2 diabetes mellitus without complications; I10 Essential (primary) hypertension